=== PATIENT | male | born 2000 | race Caucasian/White ===

== ENCOUNTER → 2022-08-26 13:48 | Outpatient (CLI) | payer OTHER, SELFPAY ==
--- NOTE | 2022-08-26 | DI.MRI.S_ITS ---
PROCEDURE: MR WRIST LT WO CON INDICATIONS: LEFT WRIST PAIN TECHNIQUE: Noncontrast coronal proton density fast spin echo and T2 fast spin echo with fat saturation; coronal 3-D gradient echo, axial T1 spin echo and T2 fast spin echo with fat saturation, sagittal T1 spin echo through the wrist. COMPARISON: None. FINDINGS: Image quality: Excellent. Bones and cartilage: The carpal bones are normally aligned. No bone marrow contusions or fractures. No evidence for avascular necrosis. Overlying cartilage surfaces appear normal. Carpal ligaments: The scapholunate ligament appears attenuated with intrasubstance T2 hyperintense signal suggestive of sprain/low-grade partial-thickness tear. No full-thickness scapholunate ligament rupture. The lunotriquetral ligament is intact. In the absence of intra-articular contrast, the extrinsic carpal ligaments are not well identified. On sagittal images, the pisohamate ligament appears intact. Triangular fibrocartilage complex: The triangular fibrocartilage appears intact. The adjacent meniscal homolog appears normal in the absence of intra-articular contrast. The extensor carpi ulnaris tendon is normal in location and morphology. Tendons and soft tissues: The carpal tunnel structures appear normal, including the median nerve. The ulnar nerve appears normal within Guyon's canal. Small amount of fluid distending extensor digitorum and indices tendons at the level of distal radius and proximal carpal row to is seen suggestive of low-grade tenosynovitis. Rest of the extensor tendon compartments demonstrate normal morphology, without pathologic tendon sheath fluid. No soft tissue ganglion cysts. IMPRESSION: 1. No marrow edema. No fracture or dislocation. No evidence of avascular necrosis. 2. Triangular fibrocartilage complex is grossly intact. 3. Suggestion of sprain/low-grade partial-thickness tear involving scapholunate ligament. Lunotriquetral ligament is intact. 4. Thickened extensor digitorum and indices tendons with small amount of fluid distending tendon sheath at the level of distal radius and carpal bones concerning for tendinosis and low-grade tenosynovitis. Rest of the wrist tendons are intact. Dictated by: Jung Courtney M.D. on 08/26/2022 at 14:59 Approved by: Jung Courtney M.D. on 08/26/2022 at 16:14
--- NOTE | 2022-08-26 | DI.RAD.S_ITS ---
PROCEDURE: XR EYE FOREIGN BODY LT INDICATIONS: MRI SCREENING eye foreign body TECHNIQUE: A single view of the orbits was acquired. COMPARISON: None. FINDINGS: Soft tissues: No metallic foreign bodies are visualized around the orbits. Bones: Bony structures appear unremarkable. Visualized sinuses appear clear. IMPRESSION: No radiopaque foreign bodies. Dictated by: Ran Munoz M.D. on 08/26/2022 at 14:08 Approved by: Ran Munoz M.D. on 08/26/2022 at 14:08
== END ==
PROVIDERS: Referring Provider Orthopaedic Surgery; Visit Provider Orthopaedic Surgery
DX: S66.323A Laceration of extensor muscle, fascia and tendon of left middle finger at wrist and hand level, initial encounter (principal); Z13.5 Encounter for screening for eye and ear disorders; X58.XXXA Exposure to other specified factors, initial encounter
CPT/HCPCS: 70030; 73221